=== PATIENT | male | born 1990 | race Caucasian/White ===

== ENCOUNTER 2023-12-06 06:44 | Day surgery (SDC) | payer OTHER, SELFPAY ==
[2023-12-06] VITALS (10 sets, daily range): BP systolic 112–186; BP diastolic 71–99; PULSE 81–105; RESP 18–20; TEMP 36.3–37.2; O2SAT 92–97; BMI 28.5
[2023-12-06] MEDS: LACTATED RINGERS 1000ML 1,000 ML 25 ML IV (07:05)
--- NOTE | 2023-12-06 08:07 | P.PNANES_ITS ---
[facility] Disclaimer: The information contained in this section may have been updated after the patient was seen, as this information can be updated by other users. Medical History (Updated 12/06/23 @ 06:56 by Giselle Merrill RN) History of COVID-19 Family History (Updated 12/06/23 @ 06:56 by Giselle Merrill RN) Father Heart attack Social History (Updated 12/06/23 @ 06:57 by Giselle Merrill RN) Smoking Status: Never smoker alcohol intake: never substance use type: denies use current occupational status: employed Travel in the last 8 weeks: None [facility] Anesthesia Checklist Patient Identification Patient Identification: Arm Band Structural Data Admitted From: Home Planned Operative Procedure/s: vasectomy Consent for Planned Operative Procedure(s) Verified: Yes Verified Documents: Surgical Consent and History and Physical NPO Status Verified Time NPO: 00:00 Additional verifications Anesthesia Reactions: No Hx Blood Transfusions: No Blood Transfusion Reaction: No Airway Assessment Mallampati Score:: Class II C-Spine Mobility Assessed: Yes TMJ Mobility Assessed: Yes Dentition: Good Dentition Neurological Assessment Level of Consciousness: Awake, Alert and Appropriate Anesthesia Plan Anesthesia Risk discussed: Yes Anesthesia Plan: Verified ASA Class: I Anesthesia Type: MAC
[2023-12-06] MEDS: BUPIVACAINE 0.5% 30ML VIAL 150 MG (09:33)
[2023-12-06] MEDS: CEFAZOLIN 2GM VIAL 2 GM (09:33)
--- NOTE | 2023-12-06 09:42 | P.PCN_ITS ---
[facility] Procedure Note Date: 12/06/23 Time: 09:42 Procedure Note:: Preop diagnosis elective sterilization Postop diagnosis elective sterilization Operative note: Patient was brought to the operating room and LMAC anesthesia was administered. He was prepped and draped using a sterile technique. First the right and then the left vas was picked up between the thumb and forefinger and an incision was made in the scrotum. The vas was secured with an Jenise clamp, isolated after cutting through the external spermatic fascia and proximal and distal ends ligated with 0 silk. Each vas end was lightly fulgurated after a section of the vas deferens was removed to be be sent for pathological identification. Hemostasis was assured and the estimated blood loss was less than 10 cc. Patient underwent bilateral cord block with 1/2% plain Marcaine, 5 cc left and right cord. He was wound was dressed and he left the rooms stable.
--- NOTE | 2023-12-06 09:48 | EXP.ANES.I ---
[facility] Anesthesia Record Part I Anesthesia Record I Intake, IV Amount: 800 Hydration: Adequate Estimated blood loss (mL): 2 Urine output (mL): 0 Blood Pressure: 130/85 SaO2: 92 Pulse Rate: 90 Airway Patency: Patent Respiratory Rate: 20 Temperature: 97.4 F Patient is:: Awake Stable to PACU at:: 09:43
--- NOTE | 2023-12-06 12:06 | EXP.ANES.II ---
[facility] Anesthesia Record Part II Anesthesia Record Part II Discharge Time: 10:13 Destination: Surgical Day Care (OP Surgery) PACU nurse assessment reviewed?: Yes Patient Condition:: Good Anesthesia Complications:: None Swallowing reflex intact?: Yes Airway Patency: Patent Cyanosis?: No Blood Pressure: 130/96 SaO2: 96 Respiratory Rate: 18 Pulse Rate: 94 Temperature: 98.1 F Mental Status: Alert & Oriented Pain level:: 0 Nausea and/or vomitting:: None Intake, IV Amount: 0 Hydration: Adequate
== END 2023-12-06 11:06 | disposition home or self-care (01) ==
PROVIDERS: Visit Provider Urology
PROC: (CPT 55250; principal; 2023-12-06 08:15)
DX: Z30.2 Encounter for sterilization (principal)
CPT/HCPCS: 55250; 96374; J0690; J2405

== ENCOUNTER 2025-01-12 01:35 | Emergency (ER) | payer OTHER, SELFPAY ==
[2025-01-12 01:43] VITALS: BP 160/123; PULSE 101; RESP 16; TEMP 36.6; O2SAT 99; BMI 28.2
--- NOTE | 2025-01-12 01:43 | CT_ITS ---
PROCEDURE INFORMATION: Exam: CT Abdomen And Pelvis With Contrast Exam date and time: 01/12/2025 2:13 AM Age: 34 years old Clinical indication: Abdominal pain; Epigastric; Additional info: Epigastric abd pain, vomiting TECHNIQUE: Imaging protocol: Computed tomography of the abdomen and pelvis with contrast. Radiation optimization: All CT scans at this facility use at least one of these dose optimization techniques: automated exposure control; mA and/or kV adjustment per patient size (includes targeted exams where dose is matched to clinical indication); or iterative reconstruction. Contrast material: ISOVUE; Contrast volume: 75 ml; Contrast route: IV; COMPARISON: No relevant prior studies available. FINDINGS: Lungs: Probable atelectatic changes. Liver: Too small to characterize hypodensities in the liver Gallbladder and biliary ducts: No calcified stones. No ductal dilation. Pancreas: No ductal dilation. No peripancreatic inflammatory changes. Spleen: Unremarkable. Adrenal glands: No mass. Kidneys and ureters: No hydronephrosis. Unremarkable renogram. Stomach and bowel: Evaluation of gastrointestinal tract is limited due to lack of oral contrast. Nonobstructive bowel gas pattern. Slightly prominent appendix without periappendiceal inflammatory changes. Appendix: See Stomach and bowel finding. Intraperitoneal space: No evidence of pneumoperitoneum. Vasculature: No abdominal aortic aneurysm. Lymph nodes: Prominent in size and number mesenteric lymph nodes. Urinary bladder: Fluid in the urinary bladder. Reproductive: The prostate is present. Bones/joints: No suspicious osseous lesion. No acute fracture. Soft tissues: Smallfat containing umbilical hernia. IMPRESSION: Nonobstructive bowel gas pattern. Slightly prominent appendix without periappendiceal inflammatory changes.
--- NOTE | 2025-01-12 01:44 | HMH.EDGENADL ---
Discharge Plan Disposition Patient Disposition: Home, Self-Care Condition: Good Prescriptions Prescriptions: No Action No Known Home Medications Referrals Follow up/Referrals: Provider,MD Joslyn [Primary Care Provider, Medical] - See instructions Activity Restrictions/Add. Instructions Additional Instructions/Restrictions: Please follow-up with your primary care provider. Please return to the emergency department if you develop any new or worsening symptoms or become concerned for your health. Clinical Impressions Clinical Impression: Vomiting Abdominal pain Qualifiers: Abdominal location: epigastric Qualified Code(s): R10.13 - Epigastric pain Instructions Patient Instructions: DI for Acute Abdominal Pain Print Language Print Language: Yoruba Discharge ED Provider: Maicol Goodwin General Adult HPI General Chief complaint: Abdominal Pain Stated complaint: abd pain Time Seen by Provider: 01/12/25 01:42 History of Present Illness HPI narrative: 34-year-old male with no significant past medical history presents for abdominal pain. He reports it started earlier tonight. He reports pain is epigastric, nonradiating, severe. Denies any chest pain or shortness of breath. Vomited once. No fevers at home. No history of abdominal pain Related Data Home Medications ?Medication ?Instructions ?Recorded ?Confirmed No Known Home Medications 11/25/23 12/06/23 Allergies Allergy/AdvReac Type Severity Reaction Status Date / Time No Known Allergies Allergy Verified 12/06/23 06:53 [facility] Disclaimer: The information contained in this section may have been updated after the patient was seen, as this information can be updated by other users. Medical History (Updated 01/12/25 @ 02:28 by Maicol Goodwin MD) History of COVID-19 Family History (Updated 12/06/23 @ 06:56 by Giselle Merrill RN) Father Heart attack Social History (Updated 12/06/23 @ 06:57 by Giselle Merrill RN) Smoking Status: Never smoker alcohol intake: never substance use type: denies use current occupational status: employed Travel in the last 8 weeks?: None Have you lived/traveled outside [place] in past 30 days?: No Contact w/someone who lives/traveled outside US past 30 days?: No Exposure to someone with infectious disease in past 14 days?: No Do you have a fever (greater than 100.4 F or 38 C)?: No Have you tested positive for COVID-19?: No Exposed to someone with COVID-19 in past 14 days?: No Do you have a sore throat?: No Do you have a cough?: No Do you have any weakness?: No Do you have any diarrhea?: No Are you experiencing any unusual bleeding?: No Do you have any muscle aches/pain?: No Do you have any abdominal pain?: Yes Are you experiencing loss of taste or smell?: No ROS Obtained: Yes All systems reviewed & no additional complaints except as documented Physical Exam General General appearance: alert and in no apparent distress Head Head exam: atraumatic and normocephalic Eye Eye exam: Present normal appearance, PERRL and EOMI ENT ENT exam: Present normal oropharynx and normal external ear exam Neck Neck exam: Present normal inspection and full ROM Chest Chest inspection: Present normal inspection and symmetric chest wall rise; Absent tenderness Respiratory Respiratory exam: Present normal lung sounds bilaterally; Absent respiratory distress Cardiovascular Cardiovascular exam: Present regular rate and normal rhythm Abdominal Exam Abdominal exam: Present soft and tenderness (Epigastric); Absent distention or guarding Extremities Exam Extremities exam: Present normal inspection; Absent edema or joint swelling Back Exam Back exam: Present normal inspection; Absent tenderness Neurological Exam Neurological exam: Present alert and oriented X3; Absent motor sensory deficit Psychiatric Psychiatric exam: Present normal affect and normal mood Skin Skin exam: Present warm, dry and normal color Lymphatic Lymphatic Findings: no adenopathy Medical Decision Making Medical Records Medical records reviewed: Yes I reviewed the patient's medical records. Screening: Per USPSTF and CDC recommendations, given the prevalence of disease in our region, it is our hospital?s policy to screen for HIV and viral Hepatitis for all patients aged 18 and over and those with ongoing risk factors. Mathieu Inquiry Pt receiving controlled substance: No Mathieu was queried for this patient: No Vital Signs: 01/12/25 01:43 01/12/25 02:16 01/12/25 02:31 Temperature 97.9 F 98.1 F Temperature Source Oral Pulse Rate 94 H 93 H Pulse Rate [Right Radial] 101 H Respiratory Rate 16 16 Blood Pressure 124/80 Blood Pressure [Right Arm] 160/123 H Blood Pressure Mean [Right Arm] 135 Blood Pressure Source [Right Arm] Automatic Cuff Blood Pressure Position [Right Arm] Supine 02 Sat by Pulse Oximetry 99 98 Oxygen Delivery Method Room Air Room Air Lab Data Lab results reviewed: Yes I reviewed the patient's lab results. Lab Results 01/12/25 01:44: WBC 6.6, RBC 4.91, Hgb 14.8, Hct 41.8 L, MCV 85.1, MCH 30.1, MCHC 35.4, RDW 13.0, Plt Count 274, MPV 9.2, Neut % (Auto) 36.4 L, Lymph % (Auto) 51.5 H, Isabela % (Auto) 6.9, Eos % (Auto) 4.7, Baso % (Auto) 0.3, Neut # (Auto) 2.4, Lymph # (Auto) 3.4, Isabela # (Auto) 0.5, Eos # (Auto) 0.3, Baso # (Auto) 0.0, Sodium 138, Potassium 3.7, Chloride 103, Carbon Dioxide 31 H, Anion Gap 7.7, BUN 15, Creatinine 1.20, Estimated Creat Clear 116, Estimated GFR 69, Est GFR ( Amer) 84, Glucose 131 H, Calcium 9.6, Total Bilirubin 1.9 H, AST 89 H, ALT 53, Alkaline Phosphatase 74, Total Protein 7.7, Albumin 4.8, Globulin 2.9, Albumin/Globulin Ratio 1.7, Lipase 209, HCV Ab BRAULIO w/Rflx PCR Qn Negative, HIV Ag/Ab Combo Qual Negative 01/12/25 01:44 01/12/25 01:44 Orders (Tests/Meds): ED MEDICATIONS Discontinued Medications Generic Name Dose Route Start Last Admin Trade Name Freq PRN Reason Stop Dose Admin Acetaminophen 1,000 mg 01/12/25 01:43 01/12/25 01:59 Acetaminophen 500mg Tab PO 01/12/25 01:44 1,000 mg ONCE ONE Administration Belladonna Alkaloids 60 ml 01/12/25 01:43 01/12/25 01:59 Belladonna Alkaloids 60 Ml Ml PO 01/12/25 01:44 60 ml ONCE ONE Administration Iopamidol 75 ml 01/12/25 02:18 01/12/25 02:18 Iopamidol-370 (76%);100ml Bottle IV 01/12/25 02:19 75 ml ONCE ONE Administration Morphine Sulfate 4 mg 01/12/25 01:43 01/12/25 01:59 Morphine 4mg/Ml Syringe IV 01/12/25 01:44 4 mg ONCE ONE Administration Ondansetron HCl 4 mg 01/12/25 01:43 01/12/25 01:59 Ondansetron 4mg/2ml Vial IV 01/12/25 01:44 4 mg ONCE ONE Administration Sodium Chloride 10 ml 01/12/25 02:18 01/12/25 02:18 Sodium Chloride 0.9% 10ml Syr (Rad Only) IV 02/11/25 02:17 10 ml NEEDED PRN Administration Maintain IV Site ORDERS Category Date Time Status CT abdomen pelvis w con Stat Cat Scan 01/12/25 01:43 Completed CBC w/Auto Diff [Complete Blood Count Auto Diff] Stat Lab 01/12/25 01:44 Completed CMP [Comprehensive Metabolic Panel] Stat Lab 01/12/25 01:44 Completed HIV Combo Stat Lab 01/12/25 01:44 Completed Hepatitis C Ab Qual. W/ RFX Stat Lab 01/12/25 01:44 Completed Lipase Stat Lab 01/12/25 01:44 Completed Medical Decision Narrative: 34-year-old male without significant past medical history presents for epigastric abdominal pain.. History was obtained via interactive discussion with patient, family, chart review. On arrival, patient is [afebrile, hemodynamically stable, satting appropriately, alert, oriented x4, GCS 15], moving all extremities spontaneously. Full physical exam performed and significant for moderate to significant epigastric abdominal tenderness Differential includes but is not limited to gastroenteritis, pancreatitis, cholecystitis, choledocholithiasis, gastric ulcer, constipation. Patient was given Tylenol, Zofran, morphine for symptomatic management and correction of underlying abnormalities. Workup initiated including CBC CMP lipase CT abdomen pelvis IV contrast. On re-evaluation, patient reports significant symptomatic improvement. Laboratory workup independently interpreted by me and significant for minimally elevated bilirubin, otherwise unremarkable labs. Imaging independently interpreted by me and significant for mild small bowel thickening and dilation, normal gallbladder, no free air, no evidence of obstruction. See radiology read for full review of final results. Given patient history, exam and workup, patient's presentation most likely represents enteritis. These findings were communicated to patient. Patient was discharged in stable condition with return precautions.. Procedures Risk/Benefits of Procedure(s) Were Explained: Yes Critical Care Critical Care Time Critical Care Time: No
[2025-01-12 01:52] LABS: Basophils % 0.3 % (0.1-2.0); Eosinophils # 0.3 Kmm3 (0.0-0.4); Eosinophils % 4.7 % (0.1-12.0); Hematocrit 41.8 % (42.0-52.0); Hemoglobin 14.8 g/dL (14.1-18.0); Immature Granulocytes # 0.01 10^3uL; Immature Granulocytes % 0.2 %; Lymphocytes # 3.4 K/mm3 (0.7-4.5); Lymphocytes % 51.5 % (10-50); Mean Corpuscular HGB Conc 35.4 g/dL (31.8-35.4); Mean Corpuscular Hemoglobin 30.1 pg (27.0-31.2); Mean Corpuscular Volume 85.1 fl (80-94); Mean Platelet Volume 9.2 fl (7.4-10.4); Monocytes # 0.5 K/mm3 (0.1-1.0); Monocytes % 6.9 % (1.7-9.3); Neutrophils # 2.4 K/mm3 (1.8-7.8); Neutrophils % 36.4 % (37.0-80.0); Nucleated Red Blood Cells # 0 10^3/uL; Nucleated Red Blood Cells % 0 %; Platelet Count 274 K/mm3 (142-424); Red Blood Count 4.91 M/mm3 (4.60-6.20); White Blood Count 6.6 K/mm3 (4.8-10.8)
[2025-01-12] MEDS: ONDANSETRON 4MG/2ML VIAL 4 MG IV (01:59)
[2025-01-12] MEDS: ACETAMINOPHEN 500MG TAB 1000 MG PO (01:59)
[2025-01-12] MEDS: MORPHINE 4MG/ML SYRINGE 4 MG IV (01:59)
[2025-01-12] MEDS: BELLADONNA ALKALOIDS 60 ML ML PO (01:59)
[2025-01-12 02:01] LABS: Alanine Aminotransferase 53 U/L (12-78); Albumin Level 4.8 g/dl (3.5-5.0); Albumin/Globulin Ratio 1.7 (1.1-1.8); Alkaline Phosphatase 74 U/L (38-126); Anion Gap 7.7 mEq/L (5-15); Aspartate Amino Transferase 89 U/L (17-59); Bilirubin,Total 1.9 mg/dl (0.2-1.3); Blood Urea Nitrogen 15 mg/dl (9-20); Calcium 9.6 mg/dl (8.4-10.2); Carbon Dioxide 31 mmol/L (22.0-30.0); Chloride 103 mmol/L (98-107); Creatinine Clearance Estimated 116 mL/min (50-200); Estimated Glomerular Filt Rate 69 ml/min (>60); GFR (African American) 84 ML/MIN (>60); Globulin 2.9 g/dL (1.3-3.2); Glucose 131 mg/dl (74-100); Lipase 209 U/L (23-300); Potassium 3.7 mmoL/L (3.5-5.1); Sodium 138 mmol/L (136-145); Total Protein,Serum 7.7 g/dl (6.3-8.2)
[2025-01-12 02:16] VITALS: PULSE 94; O2SAT 98
[2025-01-12] MEDS: IOPAMIDOL-370 (76%);100ML BOTTLE 75 ML IV (02:18)
[2025-01-12] MEDS: SODIUM CHLORIDE 0.9% 10ML SYR (RAD ONLY) 10 ML IV (02:18)
[2025-01-12 02:31] VITALS: BP 124/80; PULSE 93; RESP 16; TEMP 36.7; O2SAT 97
--- NOTE | 2025-01-12 02:36 | PC.NURSE ---
Patient D/C'd; waiting on java front end web developer to finish charting portion so patient can be removed from system
[2025-01-12 04:27] LABS: HIV Combo NEGATIVE (Negative)
[2025-01-12 04:34] LABS: Hepatitis C Ab Qual. W/ RFX NEGATIVE (Negative)
== END 2025-01-12 02:37 | disposition home or self-care (01) ==
LOC: ER 02:36
PROVIDERS: Emergency Provider Emergency Medicine
DX: R10.13 Epigastric pain (principal); R11.2 Nausea with vomiting, unspecified
CPT/HCPCS: 74177; 80053; 83690; 85025; 86803; 87389; 96374; 96375; 99285; J2270; J2405; Q9967